=== PATIENT | male | born 1950 | race African-American/Black ===

== ENCOUNTER 2025-03-21 09:05 | Inpatient (IN) | payer OTHER ==
[2025-03-21] MEDS ORDERED: DEXTROSE 50%-WATER 25 GM/50 ML DISP.SYRIN ONE ×2 (09:26→10:17)
[2025-03-21 09:48] VITALS: BMI 23.5
[2025-03-21 09:49] LABS: ABSOLUTE IMMATURE GRANULOCYTES 0.04 x10^3/uL (0.0-0.031); BASOPHILS # 0.02 x10^3/uL (0.01-0.08); EOSINOPHIL % 0.1 % (0.8-7.0); EOSINOPHILS # 0.01 x10^3/uL (0.04-0.54); MCHC 31.0 g/dl (32.3-36.5); MEAN CELL VOLUME 82.2 fl (79.0-92.2); MEAN PLT VOLUME 9.6 fl (9.4-12.4); MONOCYTE # 0.57 x10^3/uL (0.30-0.82); MONOCYTE % 7.9 % (5.3-12.2); RDW 18.0 % (12.2-16.6)
[2025-03-21] MEDS: DEXTROSE 50%-WATER - 25 GM/50 ML VIAL IVPUSH ONE (09:50)
[2025-03-21 10:07] LABS: INR 1.35 (0.83-1.09); PROTHROMBIN TIME (PATIENT) 14.9 SEC (9.7-13.0)
[2025-03-21 10:09] LABS: BG HCT 31.0 % (35.4-49); VENOUS BASE EXCESS -0.9 mmol/L (-2-2); VENOUS O2 SATURATION 56.8 % (70-80); VENOUS PCO2 52.7 mmHg (38-52); VENOUS PH 7.309 (7.310-7.410)
[2025-03-21 10:10] LABS: ACTIVATED PTT 26.5 SECONDS (25.2-36.5)
[2025-03-21 10:11] LABS: EPI CELLS 10 /uL (0-25.1); HYALINE CASTS 1 /uL (0-3.1); URINE APPEARANCE CLEAR; URINE BACTERIA 12 /uL (0-1359); URINE BILIRUBIN NEGATIVE (NEGATIVE); URINE COLOR YELLOW; URINE GLUCOSE (UA) 2+ (NEGATIVE); URINE KETONE NEGATIVE (NEGATIVE); URINE LEUK ESTERASE TRACE (NEGATIVE); URINE NITRITE NEGATIVE (NEGATIVE); URINE PROTEIN 3+ (NEGATIVE); URINE RBC 32 /uL (0-23.9); URINE UROBILINOGEN 1.0 mg/dL (0.2-1.0); URINE WBC 33 /uL (0-25.8)
[2025-03-21] MEDS ORDERED: DEXTROSE 50%-WATER - 25 GM/50 ML VIAL IVPUSH PRN ×3 (10:18→12:28)
[2025-03-21 10:19] LABS: GLUCOSE,RANDOM 77.0 mg/dL (74-106); TOT PROT 6.1 g/dl (6.4-8.2)
[2025-03-21 10:20] LABS: CO2 23.0 mmol/L (21-32)
[2025-03-21 10:22] LABS: ALK PHOS 266.0 U/L (40-150)
[2025-03-21 10:24] LABS: SGOT/AST 117.0 U/L (5-34); SGPT/ALT 105.0 U/L (0-55)
[2025-03-21] MEDS: DEXTROSE 50%-WATER - 25 GM/50 ML VIAL IVPUSH PRN (10:24)
[2025-03-21 10:25] LABS: CREATININE 1.3 mg/dL (0.55-1.3)
[2025-03-21] MEDS ORDERED: DEXTROSE 10%-WATER - 1,000 ML IV SCH (10:30)
[2025-03-21 10:51] LABS: LACTIC ACID 2.1 mmol/L (0.4-2.0)
[2025-03-21] MEDS: DEXTROSE 5%-NORMAL SALINE 1,000 ML IV ONE (11:09)
[2025-03-21] MEDS ORDERED: PIPERACILLIN/TAZOB 4.5 GM 4.5 GM/100 ML BAG IVPB ONE ×2 (11:45→18:20)
[2025-03-21] MEDS: PIPERACILLIN/TAZOB 4.5 GM 4.5 GM in DEXTROSE 5%-WATER 100 ML IVPB ONE (12:02)
[2025-03-21] MEDS ORDERED: VANCOMYCIN 1 GM PREMIX (F) 1 GM/200 ML BAG ONE (12:30)
[2025-03-21] MEDS ORDERED: FUROSEMIDE 40 MG/4 ML INJECTABLE VIAL ONE (12:32)
[2025-03-21] MEDS: VANCOMYCIN 1 GM PREMIX (F) 1 GM/200 ML BAG IVPB ONE (12:35)
[2025-03-21] MEDS: FUROSEMIDE 40 MG/4 ML INJECTABLE VIAL IVPUSH ONE (12:35)
[2025-03-21] MEDS: PIPERACILLIN/TAZOB 4.5 GM 4.5 GM in DEXTROSE 5%-WATER 100 ML IVPB SCH (12:36)
[2025-03-21 13:37] LABS: LACTIC ACID 2.3 mmol/L (0.4-2.0)
[2025-03-21] MEDS ORDERED: PIPERACILLIN/TAZOB 4.5 GM 4.5 GM in DEXTROSE 5%-WATER 100 ML IVPB SCH ×2 (18:00→20:00)
[2025-03-21] MEDS: DIVALPROEX NA *ER* EXTEND REL 250 MG TABLET.SA PO SCH (21:17)
[2025-03-21] MEDS: HEPARIN NA (PORCINE) 5,000 UNITS/ML 1ML VIAL SQ SCH (21:17)
[2025-03-21] MEDS: ATORVASTATIN CA 20 MG TABLET (FP) PO SCH (21:17)
[2025-03-21] MEDS: DONEPEZIL HCL 5 MG TABLET (FP) PO SCH (22:25)
[2025-03-22 04:29] VITALS: RESP 18
[2025-03-22 08:15] LABS: ABSOLUTE IMMATURE GRANULOCYTES 0.02 x10^3/uL (0.0-0.031); BASOPHILS # 0.02 x10^3/uL (0.01-0.08); EOSINOPHIL % 0.6 % (0.8-7.0); EOSINOPHILS # 0.03 x10^3/uL (0.04-0.54); MCHC 31.0 g/dl (32.3-36.5); MEAN CELL VOLUME 79.5 fl (79.0-92.2); MEAN PLT VOLUME 9.8 fl (9.4-12.4); MONOCYTE # 0.45 x10^3/uL (0.30-0.82); MONOCYTE % 8.9 % (5.3-12.2); RDW 17.8 % (12.2-16.6)
[2025-03-22 08:28] LABS: GLUCOSE,RANDOM 119.0 mg/dL (74-106)
[2025-03-22 08:29] LABS: CO2 28.0 mmol/L (21-32)
[2025-03-22 08:33] LABS: CREATININE 1.26 mg/dL (0.55-1.3)
[2025-03-22 10:20] LABS: LACTIC ACID 2.2 mmol/L (0.4-2.0)
[2025-03-22] MEDS: SPIRONOLACTONE 25 MG TABLET PO SCH (11:06)
[2025-03-22] MEDS: CLOPIDOGREL BISULFATE 75 MG TABLET (FP) PO SCH (11:07)
[2025-03-22] MEDS: ASPIRIN 81 MG CHEWABLE TABLETS PO SCH (11:07)
[2025-03-22] MEDS: FINASTERIDE 5 MG TABLET (FP) PO SCH (11:07)
[2025-03-22] MEDS: DIVALPROEX NA *ER* EXTEND REL 500 MG TABLET.SA (FP) PO SCH (11:10)
[2025-03-22] MEDS ORDERED: FUROSEMIDE 40 MG/4 ML INJECTABLE VIAL IVPUSH SCH (14:00)
[2025-03-22 14:15] VITALS: BP 142/94; PULSE 80; TEMP 97.3
[2025-03-23] MEDS ORDERED: FUROSEMIDE 40 MG TABLET (FP) PO SCH (10:00)
== END 2025-03-22 15:20 | DRG 637 ==
LOC: JER 09:05 → JERBED 11:33 → OBSVTOIN 12:21 → J6W TELE 20:22
PROVIDERS: ADMIT Internal Medicine; ATTEND Internal Medicine
DX: E11.649 Type 2 diabetes mellitus with hypoglycemia without coma (principal); I50.23 Acute on chronic systolic (congestive) heart failure; J69.0 Pneumonitis due to inhalation of food and vomit; E87.20 Acidosis, unspecified; R56.9 Unspecified convulsions; I25.10 Atherosclerotic heart disease of native coronary artery without angina pectoris; I11.0 Hypertensive heart disease with heart failure; F03.90 Unspecified dementia, unspecified severity, without behavioral disturbance, psychotic disturbance, mood disturbance, and anxiety; N40.0 Benign prostatic hyperplasia without lower urinary tract symptoms; E78.5 Hyperlipidemia, unspecified
CPT/HCPCS: 36415; 70450-TC; 71045-TC-FY; 80048; 80053; 81003; 82803; 82962; 83036; 83605; 83735; 83880; 84484; 85025; 85610; 85730; 87086; 87637-QW; 93005; 93010; 99285-25; G0378

== ENCOUNTER 2025-03-27 16:44 | Inpatient (IN) | payer OTHER ==
[2025-03-27] MEDS ORDERED: DEXTROSE 50%-WATER 25 GM/50 ML DISP.SYRIN ONE (17:08)
[2025-03-27] MEDS: DEXTROSE 50%-WATER - 25 GM/50 ML VIAL IVPUSH ONE (17:12)
[2025-03-27] MEDS ORDERED: PIPERACILLIN/TAZOB 3.375 GM 3.375 GM/50 ML BAG IVPB ONE (17:26)
[2025-03-27] MEDS: PIPERACILLIN/TAZOB 3.375 GM 3.375 GM in DEXTROSE 5%-WATER - 50 ML IVPB ONE (17:30)
[2025-03-27 17:33] LABS: ABSOLUTE IMMATURE GRANULOCYTES 0.04 x10^3/uL (0.0-0.031); BASOPHILS # 0.01 x10^3/uL (0.01-0.08); EOSINOPHIL % 0.0 % (0.8-7.0); EOSINOPHILS # 0.00 x10^3/uL (0.04-0.54); MCHC 31.2 g/dl (32.3-36.5); MEAN CELL VOLUME 80.9 fl (79.0-92.2); MEAN PLT VOLUME 10.4 fl (9.4-12.4); MONOCYTE # 0.48 x10^3/uL (0.30-0.82); MONOCYTE % 8.2 % (5.3-12.2); RDW 19.4 % (12.2-16.6)
[2025-03-27 17:35] LABS: EPI CELLS 6 /uL (0-25.1); HYALINE CASTS 0 /uL (0-3.1); URINE APPEARANCE CLEAR; URINE BACTERIA 3 /uL (0-1359); URINE BILIRUBIN NEGATIVE (NEGATIVE); URINE COLOR YELLOW; URINE GLUCOSE (UA) 2+ (NEGATIVE); URINE KETONE NEGATIVE (NEGATIVE); URINE LEUK ESTERASE NEGATIVE (NEGATIVE); URINE NITRITE NEGATIVE (NEGATIVE); URINE PROTEIN 3+ (NEGATIVE); URINE RBC 18 /uL (0-23.9); URINE UROBILINOGEN 0.2 mg/dL (0.2-1.0); URINE WBC 5 /uL (0-25.8)
[2025-03-27 17:37] LABS: BG HCT 43.0 % (35.4-49); VENOUS BASE EXCESS 3.1 mmol/L (-2-2); VENOUS O2 SATURATION 79.7 % (70-80); VENOUS PCO2 52.2 mmHg (38-52); VENOUS PH 7.371 (7.310-7.410)
[2025-03-27 17:44] LABS: INR 1.15 (0.83-1.09); PROTHROMBIN TIME (PATIENT) 12.7 SEC (9.7-13.0)
[2025-03-27 17:47] LABS: ACTIVATED PTT 25.0 SECONDS (25.2-36.5)
[2025-03-27 17:55] LABS: TOT PROT 7.3 g/dl (6.4-8.2)
[2025-03-27 17:56] LABS: CO2 21 mmol/L (21-32)
[2025-03-27 18:01] LABS: CREATININE 1.12 mg/dL (0.55-1.3); SGOT/AST 201 U/L (5-34); SGPT/ALT 252 U/L (0-55)
[2025-03-27 18:31] LABS: ALK PHOS 286 U/L (40-150); GLUCOSE,RANDOM 43 mg/dL (74-106)
[2025-03-27 18:52] LABS: TOT PROT 6.7 g/dl (6.4-8.2)
[2025-03-27 18:53] LABS: CO2 25.0 mmol/L (21-32)
[2025-03-27 18:55] LABS: ALK PHOS 274.0 U/L (40-150)
[2025-03-27] MEDS ORDERED: VANCOMYCIN HCL 1,500 MG in DEXTROSE 5%-WATER - 500 ML IVPB ONE (18:55)
[2025-03-27 18:57] LABS: CREATININE 1.22 mg/dL (0.55-1.3); SGOT/AST 173.0 U/L (5-34); SGPT/ALT 243.0 U/L (0-55)
[2025-03-27 18:58] LABS: LACTIC ACID 2.4 mmol/L (0.4-2.0)
[2025-03-27 19:18] LABS: HCV DIAGNOSTIC IN-HOUSE W/RFLX NON-REACTIVE (NONREACTIVE)
[2025-03-27 20:07] LABS: CO2 23.0 mmol/L (21-32)
[2025-03-27] MEDS ORDERED: ACETAMINOPHEN 325 MG TABLET (FP) PO PRN (20:11)
[2025-03-27 20:12] LABS: CREATININE 1.16 mg/dL (0.55-1.3)
[2025-03-27 20:25] LABS: GLUCOSE,RANDOM 92.0 mg/dL (74-106)
[2025-03-27 20:26] LABS: HIV INTERPRETATION NEGATIVE (NEGATIVE)
[2025-03-27 20:28] LABS: GLUCOSE,RANDOM 123.0 mg/dL (74-106)
[2025-03-27] MEDS: CIPROFLOXACIN 400 MG/D5W 400 MG/200 ML IVPB IVPB ONE (20:49)
[2025-03-27] MEDS ORDERED: methylPREDNISolone NA SUCC 40 MG/1 ML VIAL ONE (20:56)
[2025-03-27] MEDS: methylPREDNISolone NA SUCC 40 MG/1 ML VIAL IVPUSH SCH (20:57)
[2025-03-27 21:14] LABS: LACTIC ACID 2.1 mmol/L (0.4-2.0)
[2025-03-27] MEDS: VANCOMYCIN PREMIX 1.5 GM 1,500 MG/300 ML BAG IVPB ONE (22:50)
[2025-03-27] MEDS ORDERED: SACUBITRIL/VALSARTAN 24 MG-26 MG TABLET ONE (22:56)
[2025-03-27] MEDS ORDERED: SENNOSIDES 8.6MG TABLET (FP) PO ONE (22:56)
[2025-03-27] MEDS ORDERED: HEPARIN NA (PORCINE) 5,000 UNITS/ML 1ML VIAL ONE (22:56)
[2025-03-27] MEDS ORDERED: DIVALPROEX NA *ER* EXTEND REL 250 MG TABLET.SA ONE (22:56)
[2025-03-27] MEDS ORDERED: ATORVASTATIN CA 20 MG TABLET (FP) ONE (22:56)
[2025-03-27] MEDS: DIVALPROEX NA *ER* EXTEND REL 250 MG TABLET.SA PO SCH (23:06)
[2025-03-27] MEDS: SACUBITRIL/VALSARTAN 24 MG-26 MG TABLET PO SCH (23:06)
[2025-03-27] MEDS: SENNOSIDES 8.6MG TABLET (FP) PO SCH (23:07)
[2025-03-27] MEDS: ATORVASTATIN CA 20 MG TABLET (FP) PO SCH (23:07)
[2025-03-27] MEDS: HEPARIN NA (PORCINE) 5,000 UNITS/ML 1ML VIAL SQ SCH (23:07)
[2025-03-27] MEDS: DEXTROSE 5%-0.45% SALINE 1,000 ML IV SCH (23:11)
[2025-03-28] MEDS: HALOPERIDOL LACTATE 5 MG/ML IM ONE (01:17)
[2025-03-28] MEDS ORDERED: PIPERACILLIN/TAZOB 4.5 GM 3.375 GM in DEXTROSE 5%-WATER 100 ML IVPB SCH (03:00)
[2025-03-28] MEDS ORDERED: PIPERACILLIN/TAZOB 3.375 GM 3.375 GM/50 ML BAG IVPB ONE (03:06)
[2025-03-28] MEDS: PIPERACILLIN/TAZOB 3.375 GM 3.375 GM in DEXTROSE 5%-WATER - 50 ML IVPB SCH (03:08)
[2025-03-28] MEDS: INSULIN ASPART SLIDING SCALE (NOVOLOG) 1 VIAL SQ SCH (06:08)
[2025-03-28] MEDS: ALBUTEROL SO4 2.5/IPRATROPIUM 0.5 INH SOL 3 ML VIAL.NEB. NEB SCH (08:21)
[2025-03-28 08:25] LABS: MCHC 30.6 g/dl (32.3-36.5); MEAN CELL VOLUME 81.6 fl (79.0-92.2); MEAN PLT VOLUME 10.3 fl (9.4-12.4); RDW 19.3 % (12.2-16.6)
[2025-03-28 08:54] LABS: GLUCOSE,RANDOM 148.0 mg/dL (74-106)
[2025-03-28 08:55] LABS: TOT PROT 6.4 g/dl (6.4-8.2)
[2025-03-28 08:56] LABS: CO2 28.0 mmol/L (21-32)
[2025-03-28 08:57] LABS: ALK PHOS 258.0 U/L (40-150)
[2025-03-28 09:01] LABS: CREATININE 1.37 mg/dL (0.55-1.3); SGOT/AST 269.0 U/L (5-34); SGPT/ALT 330.0 U/L (0-55)
[2025-03-28] MEDS: DEXTROSE 5%-0.45% SALINE 1,000 ML IV SCH (09:23)
[2025-03-28 10:04] LABS: N-TERMINAL BNP 61903.4 pg/mL (0-299.9)
[2025-03-28] MEDS: FINASTERIDE 5 MG TABLET (FP) PO SCH (10:13)
[2025-03-28] MEDS: CLOPIDOGREL BISULFATE 75 MG TABLET (FP) PO SCH (10:13)
[2025-03-28] MEDS: ASPIRIN 81 MG CHEWABLE TABLETS PO SCH (10:13)
[2025-03-28] MEDS: FUROSEMIDE 40 MG/4 ML INJECTABLE VIAL IVPUSH ONE (10:13)
[2025-03-28] MEDS: DONEPEZIL HCL 5 MG TABLET (FP) PO SCH (21:33)
[2025-03-29] MEDS ORDERED: FUROSEMIDE 40 MG/4 ML INJECTABLE VIAL IVPUSH SCH (06:00)
[2025-03-29] MEDS: FUROSEMIDE 40 MG/4 ML INJECTABLE VIAL IVPUSH SCH (06:28)
[2025-03-29 08:14] LABS: ABSOLUTE IMMATURE GRANULOCYTES 0.02 x10^3/uL (0.0-0.031); BASOPHILS # 0.01 x10^3/uL (0.01-0.08); EOSINOPHIL % 0.0 % (0.8-7.0); EOSINOPHILS # 0.00 x10^3/uL (0.04-0.54); MCHC 30.6 g/dl (32.3-36.5); MEAN CELL VOLUME 81.1 fl (79.0-92.2); MEAN PLT VOLUME 10.1 fl (9.4-12.4); MONOCYTE # 0.36 x10^3/uL (0.30-0.82); MONOCYTE % 6.8 % (5.3-12.2); RDW 18.7 % (12.2-16.6)
[2025-03-29 08:37] LABS: TOT PROT 6.4 g/dl (6.4-8.2)
[2025-03-29 08:38] LABS: CO2 26.0 mmol/L (21-32)
[2025-03-29 08:40] LABS: ALK PHOS 250.0 U/L (40-150); GLUCOSE,RANDOM 83.0 mg/dL (74-106)
[2025-03-29 08:42] LABS: SGPT/ALT 304.0 U/L (0-55)
[2025-03-29 08:43] LABS: CREATININE 1.46 mg/dL (0.55-1.3)
[2025-03-29 08:53] LABS: SGOT/AST 188.0 U/L (5-34)
[2025-03-29] MEDS: SPIRONOLACTONE 25 MG TABLET PO SCH (10:51)
[2025-03-30] MEDS: LORazepam 2 MG/ML SDV VIAL IVPUSH ONE (02:00)
[2025-03-30] MEDS: TOBRA 0.3%/DEXAMETH 0.1% OPHTHALMIC SUSP 2.5 ML BTL OU SCH (02:00)
[2025-03-30 08:58] LABS: ABSOLUTE IMMATURE GRANULOCYTES 0.04 x10^3/uL (0.0-0.031); BASOPHILS # 0.00 x10^3/uL (0.01-0.08); EOSINOPHIL % 0.2 % (0.8-7.0); EOSINOPHILS # 0.01 x10^3/uL (0.04-0.54); MCHC 31.7 g/dl (32.3-36.5); MEAN CELL VOLUME 78.7 fl (79.0-92.2); MEAN PLT VOLUME 10.6 fl (9.4-12.4); MONOCYTE # 0.35 x10^3/uL (0.30-0.82); MONOCYTE % 7.9 % (5.3-12.2); RDW 17.9 % (12.2-16.6)
[2025-03-30 09:33] LABS: TOT PROT 6.1 g/dl (6.4-8.2)
[2025-03-30 09:34] LABS: CO2 30.0 mmol/L (21-32)
[2025-03-30 09:38] LABS: SGOT/AST 101.0 U/L (5-34); SGPT/ALT 227.0 U/L (0-55)
[2025-03-30 09:39] LABS: CREATININE 1.39 mg/dL (0.55-1.3)
[2025-03-30 09:41] LABS: ALK PHOS 223.0 U/L (40-150); GLUCOSE,RANDOM 97.0 mg/dL (74-106)
[2025-03-30] MEDS: DEXTROSE 50%-WATER 25 GM/50 ML DISP.SYRIN IVPUSH ONE ×2 (15:57→19:01)
[2025-03-30 16:55] LABS: BG HCT 33.0 % (35.4-49); VENOUS BASE EXCESS 4.9 mmol/L (-2-2); VENOUS O2 SATURATION 50.7 % (70-80); VENOUS PCO2 53.5 mmHg (38-52); VENOUS PH 7.381 (7.310-7.410)
[2025-03-30] MEDS: ARTIFICIAL TEARS OPHTHALMIC DROPS OU SCH (21:05)
[2025-03-30] MEDS: LABETALOL HCL 20 MG/4 ML VIAL IVPUSH PRN (22:33)
[2025-03-31 09:10] LABS: ABSOLUTE IMMATURE GRANULOCYTES 0.08 x10^3/uL (0.0-0.031); BASOPHILS # 0.00 x10^3/uL (0.01-0.08); EOSINOPHIL % 0.6 % (0.8-7.0); EOSINOPHILS # 0.03 x10^3/uL (0.04-0.54); MCHC 31.1 g/dl (32.3-36.5); MEAN CELL VOLUME 80.6 fl (79.0-92.2); MEAN PLT VOLUME 10.7 fl (9.4-12.4); MONOCYTE # 0.41 x10^3/uL (0.30-0.82); MONOCYTE % 8.8 % (5.3-12.2); RDW 18.6 % (12.2-16.6)
[2025-03-31] MEDS ORDERED: METOPROLOL TARTRATE 5 MG/5 ML VIAL IVPUSH ONE (09:30)
[2025-03-31 09:35] LABS: GLUCOSE,RANDOM 166.0 mg/dL (74-106)
[2025-03-31 09:36] LABS: TOT PROT 6.1 g/dl (6.4-8.2)
[2025-03-31 09:37] LABS: CO2 33.0 mmol/L (21-32)
[2025-03-31 09:39] LABS: ALK PHOS 215.0 U/L (40-150)
[2025-03-31 09:41] LABS: SGOT/AST 59.0 U/L (5-34); SGPT/ALT 175.0 U/L (0-55)
[2025-03-31 09:42] LABS: CREATININE 1.11 mg/dL (0.55-1.3)
[2025-03-31] MEDS ORDERED: METOPROLOL TARTRATE 5 MG/5 ML VIAL ONE (10:05)
[2025-03-31] MEDS: METOPROLOL TARTRATE 5 MG/5 ML VIAL IVPUSH ONE (10:09)
[2025-04-01 08:10] LABS: ABSOLUTE IMMATURE GRANULOCYTES 0.05 x10^3/uL (0.0-0.031); BASOPHILS # 0.00 x10^3/uL (0.01-0.08); EOSINOPHIL % 0.8 % (0.8-7.0); EOSINOPHILS # 0.03 x10^3/uL (0.04-0.54); MCHC 30.6 g/dl (32.3-36.5); MEAN CELL VOLUME 81.4 fl (79.0-92.2); MEAN PLT VOLUME 10.1 fl (9.4-12.4); MONOCYTE # 0.33 x10^3/uL (0.30-0.82); MONOCYTE % 9.2 % (5.3-12.2); RDW 18.5 % (12.2-16.6)
[2025-04-01 08:53] LABS: GLUCOSE,RANDOM 117.0 mg/dL (74-106); TOT PROT 6.5 g/dl (6.4-8.2)
[2025-04-01 08:54] LABS: CO2 38.0 mmol/L (21-32)
[2025-04-01 08:58] LABS: SGPT/ALT 149.0 U/L (0-55)
[2025-04-01 08:59] LABS: CREATININE 1.13 mg/dL (0.55-1.3); SGOT/AST 44.0 U/L (5-34)
[2025-04-01 09:02] LABS: ALK PHOS 223.0 U/L (40-150)
[2025-04-01] MEDS ORDERED: hydrOXYzine PAMOATE 50 MG CAPSULE (FP) PO ONE (21:40)
[2025-04-01] MEDS: hydrOXYzine PAMOATE 25 MG CAPSULE (FP) PO ONE (22:43)
[2025-04-02 08:52] LABS: ABSOLUTE IMMATURE GRANULOCYTES 0.03 x10^3/uL (0.0-0.031); BASOPHILS # 0.01 x10^3/uL (0.01-0.08); EOSINOPHIL % 0.8 % (0.8-7.0); EOSINOPHILS # 0.03 x10^3/uL (0.04-0.54); MCHC 30.6 g/dl (32.3-36.5); MEAN CELL VOLUME 80.8 fl (79.0-92.2); MEAN PLT VOLUME 10.8 fl (9.4-12.4); MONOCYTE # 0.56 x10^3/uL (0.30-0.82); MONOCYTE % 14.3 % (5.3-12.2); RDW 18.5 % (12.2-16.6)
[2025-04-02 09:39] LABS: GLUCOSE,RANDOM 123.0 mg/dL (74-106); TOT PROT 6.3 g/dl (6.4-8.2)
[2025-04-02 09:40] LABS: CO2 34.0 mmol/L (21-32)
[2025-04-02 09:45] LABS: CREATININE 1.1 mg/dL (0.55-1.3); SGOT/AST 39.0 U/L (5-34); SGPT/ALT 116.0 U/L (0-55)
[2025-04-02 10:40] LABS: ALK PHOS 194.0 U/L (40-150)
[2025-04-02] MEDS: NAPH,MB-DB/K PH,MBDB POWDER PACKET PO ONE (12:43)
[2025-04-02] MEDS: CARVEDILOL 3.125 MG TABLET (FP) PO SCH (22:02)
[2025-04-03 08:52] LABS: ABSOLUTE IMMATURE GRANULOCYTES 0.03 x10^3/uL (0.0-0.031); BASOPHILS # 0.01 x10^3/uL (0.01-0.08); EOSINOPHIL % 0.4 % (0.8-7.0); EOSINOPHILS # 0.02 x10^3/uL (0.04-0.54); MCHC 30.8 g/dl (32.3-36.5); MEAN CELL VOLUME 80.9 fl (79.0-92.2); MEAN PLT VOLUME 10.9 fl (9.4-12.4); MONOCYTE # 0.50 x10^3/uL (0.30-0.82); MONOCYTE % 11.2 % (5.3-12.2); RDW 18.5 % (12.2-16.6)
[2025-04-03 09:07] LABS: GLUCOSE,RANDOM 115.0 mg/dL (74-106); TOT PROT 6.6 g/dl (6.4-8.2)
[2025-04-03 09:08] LABS: CO2 36.0 mmol/L (21-32)
[2025-04-03 09:12] LABS: SGOT/AST 34.0 U/L (5-34); SGPT/ALT 100.0 U/L (0-55)
[2025-04-03 09:13] LABS: CREATININE 1.13 mg/dL (0.55-1.3)
[2025-04-03 09:26] LABS: ALK PHOS 200.0 U/L (40-150)
[2025-04-03] MEDS: ASPIRIN 81 MG CHEWABLE TABLETS PO SCH (10:47)
[2025-04-03] MEDS: CARVEDILOL 6.25 MG TABLET (FP) PO SCH (10:48)
[2025-04-03] MEDS ORDERED: DEXTROSE 50%-WATER 25 GM/50 ML DISP.SYRIN ONE (16:53)
[2025-04-03 17:47] VITALS: BMI 20.3
[2025-04-03] MEDS: DEXTROSE 50%-WATER 25 GM/50 ML DISP.SYRIN IVPUSH ONE (17:50)
[2025-04-03] MEDS: DEXTROSE 50%-WATER 25 GM/50 ML DISP.SYRIN IVPUSH PRN (17:50)
[2025-04-04] MEDS: D5-1/2NS+20 MEQ KCL - 20 MEQ/1,000 ML INFUS.BAG IV SCH (00:33)
[2025-04-05 00:17] VITALS: RESP 18
[2025-04-05 06:38] LABS: ABSOLUTE IMMATURE GRANULOCYTES 0.02 x10^3/uL (0.0-0.031); BASOPHILS # 0.01 x10^3/uL (0.01-0.08); EOSINOPHIL % 0.2 % (0.8-7.0); EOSINOPHILS # 0.01 x10^3/uL (0.04-0.54); MCHC 30.5 g/dl (32.3-36.5); MEAN CELL VOLUME 81.1 fl (79.0-92.2); MEAN PLT VOLUME 11.6 fl (9.4-12.4); MONOCYTE # 0.50 x10^3/uL (0.30-0.82); MONOCYTE % 11.3 % (5.3-12.2); RDW 18.6 % (12.2-16.6)
[2025-04-05 07:05] LABS: GLUCOSE,RANDOM 112.0 mg/dL (74-106)
[2025-04-05 07:06] LABS: TOT PROT 6.0 g/dl (6.4-8.2)
[2025-04-05 07:07] LABS: CO2 36.0 mmol/L (21-32)
[2025-04-05 07:11] LABS: SGOT/AST 31.0 U/L (5-34); SGPT/ALT 67.0 U/L (0-55)
[2025-04-05 07:20] LABS: ALK PHOS 170.0 U/L (40-150); CREATININE 1.33 mg/dL (0.55-1.3)
[2025-04-05 08:55] VITALS: BP 124/96; PULSE 76; TEMP 97.3
== END 2025-04-05 15:14 | DRG 291 ==
LOC: JER 16:44 → JERBED 19:24 → J6W TELE 03-28 05:24
PROVIDERS: ADMIT Hospitalist; ATTEND Internal Medicine
PROC: 4A10X4Z Monitoring of Central Nervous Electrical Activity, External Approach (ICD-10-PCS; principal; 2025-03-31)
DX: I11.0 Hypertensive heart disease with heart failure (principal); I50.23 Acute on chronic systolic (congestive) heart failure; I24.89 Other forms of acute ischemic heart disease; E44.0 Moderate protein-calorie malnutrition; J44.1 Chronic obstructive pulmonary disease with (acute) exacerbation; F03.90 Unspecified dementia, unspecified severity, without behavioral disturbance, psychotic disturbance, mood disturbance, and anxiety; E78.5 Hyperlipidemia, unspecified; I42.0 Dilated cardiomyopathy; E11.649 Type 2 diabetes mellitus with hypoglycemia without coma; N40.0 Benign prostatic hyperplasia without lower urinary tract symptoms; R74.01 Elevation of levels of liver transaminase levels; G40.909 Epilepsy, unspecified, not intractable, without status epilepticus; H11.31 Conjunctival hemorrhage, right eye; Z68.20 Body mass index [BMI] 20.0-20.9, adult
CPT/HCPCS: 36415; 70450-TC; 70480-TC; 71045-TC-FY; 71250-TC; 80048; 80053; 81003; 82272; 82803; 82962; 83036; 83605; 83735; 83880; 84100; 84484; 85025; 85027; 85610; 85730; 86803; 86850; 86900; 86901; 87040; 87086; 87389; 87637-QW; 93005; 93010; 94640; 95816; 99285-25